=== PATIENT | female | born 1965 | race Caucasian/White ===

== ENCOUNTER 2024-08-08 21:42 | Emergency (ER) | payer BC ==
--- NOTE | 2024-08-08 22:39 | ED ---
Female Urogenital HPI - General Source: patient Mode of arrival: ambulatory Limitations: no limitations <Mukesh Taylor - Last Filed: 08/08/24 22:38> - General Source: patient, RN notes reviewed <Lindy Walton - Last Filed: 08/09/24 00:30> - General Chief complaint: Urogenital Stated complaint: UTI Time Seen by Provider: 08/08/24 22:38 - History of Present Illness Initial comments: Quick note: 59-year-old female presenting with chief complaint of "I have a UTI". She is having hematuria dysuria urgency and frequency. No flank pain, fever, nausea, vomiting. (Mukesh Taylor) 59-year-old female presenting with chief complaint of "I have a UTI". States since yesterday she has been experiencing dysuria, urinary frequency, and urinary urgency. Denies fevers, flank pain, nausea, or vomiting. States this feels similar to previous UTIs. (Lindy Walotn) - Related Data Previous Rx's Medication Instructions Recorded Cephalexin [Keflex] 500 mg PO Q12H 7 Days #14 cap 08/09/24 Allergies Allergy/AdvReac Type Severity Reaction Status Date / Time Penicillins AdvReac Rash/Hives Verified 08/08/24 21:56 Review of Systems ROS Other: All systems not noted in ROS Statement are negative. <Mukesh Taylor - Last Filed: 08/08/24 22:38> ROS Other: All systems not noted in ROS Statement are negative. <Lindy Walton - Last Filed: 08/09/24 00:30> ROS Statement: Those systems with pertinent positive or pertinent negative responses have been documented in the HPI. Past Medical History Past Medical History: Thyroid Disorder Past Surgical History: No Surgical Hx Reported Past Psychological History: No Psychological Hx Reported Smoking Status: Never smoker Past Alcohol Use History: None Reported Past Drug Use History: None Reported <Mukesh Taylor - Last Filed: 08/08/24 22:38> General Exam Limitations: no limitations <Mukesh Taylor - Last Filed: 08/08/24 22:38> General appearance: alert, in no apparent distress Head exam: Present: atraumatic, normocephalic, normal inspection Eye exam: Present: normal appearance, PERRL, EOMI. Absent: scleral icterus, conjunctival injection, periorbital swelling Respiratory exam: Present: normal lung sounds bilaterally. Absent: respiratory distress, wheezes, rales, rhonchi, stridor Cardiovascular Exam: Present: regular rate, normal rhythm, normal heart sounds. Absent: systolic murmur, diastolic murmur, rubs, gallop, clicks GI/Abdominal exam: Present: soft, normal bowel sounds. Absent: distended, tenderness, guarding, rebound, rigid Back exam: Absent: CVA tenderness (R), CVA tenderness (L) Neurological exam: Present: alert, oriented X3 Psychiatric exam: Present: normal affect, normal mood Skin exam: Present: warm, dry, intact, normal color. Absent: rash <Lindy Walton - Last Filed: 08/09/24 00:30> - General Exam Comments Initial Comments: Visual Physical Exam Vital signs reviewed General: Well-appearing, nontoxic, no acute distress. Head: Normocephalic, atraumatic Eyes: PERRLA, EOMI ENT: Airway patent Chest: Nonlabored breathing Skin: No visual rash, normal skin tone Neuro: Alert and oriented 3 Musculoskeletal: No gross abnormalities (Mukesh Taylor) Course Vital Signs 08/08/24 21:54 Temperature 98.0 F Pulse Rate 77 Respiratory 22 Rate Blood Pressure 131/67 O2 Sat by Pulse 97 Oximetry Medical Decision Making <Mukesh Taylor - Last Filed: 08/08/24 22:38> <Lindy Walton - Last Filed: 08/09/24 00:30> - Medical Decision Making I performed the quick note portion of this visit, electronically signed Mukesh Taylor PA-C (Mukesh Taylor) Was pt. sent in by a medical professional or institution (MANDEEP Shaffer, AUDIO VISUAL DESIGN ENGINEER, urgent care, hospital, or skilled nursing...) When possible be specific @ -No Did you speak to anyone other than the patient for history (EMS, parent, family, police, friend...)? What history was obtained from this source @ -No Did you review nursing and triage notes (agree or disagree)? Why? @ -I reviewed and agree with nursing and triage notes Were old charts reviewed (outside hosp., previous admission, EMS record, old EKG, old radiological studies, urgent care reports/EKG's, skilled nursing records)? Report findings @ -No old charts were reviewed Differential Diagnosis (chest pain, altered mental status, abdominal pain women, abdominal pain men, vaginal bleeding, weakness, fever, dyspnea, syncope, headache, dizziness, GI bleed, back pain, seizure, CVA, palpatations, mental health, musculoskeletal)? @ -Urinary tract infection, nephrolithiasis, pyelonephritis EKG interpreted by me (3pts min.). @ -None X-rays interpreted by me (1pt min.). @ -None done CT interpreted by me (1pt min.). @ -None done U/S interpreted by me (1pt. min.). @ -None done What testing was considered but not performed or refused? (CT, X-rays, U/S, labs)? Why? @ -None What meds were considered but not given or refused? Why? @ -None Did you discuss the management of the patient with other professionals (professionals i.e. , PA, AUDIO VISUAL DESIGN ENGINEER, lab, RT, psych nurse, community mental health social worker, clamp operator, teacher, examining officer, therapeutic case manager)? Give summary @ -No Was smoking cessation discussed for >3mins.? @ -No Was critical care preformed (if so, how long)? @ -No Were there social determinants of health that impacted care today? How? (Homelessness, low income, unemployed, alcoholism, drug addiction, singh sportation, low edu. Level, literacy, decrease access to med. care, retirement, rehab)? @ -No Was there de-escalation of care discussed even if they declined (Discuss DNR or withdrawal of care, Hospice)? DNR status @ -No What co-morbidities impacted this encounter? (DM, HTN, Smoking, COPD, CAD, Cancer, CVA, ARF, Chemo, Hep., AIDS, mental health diagnosis, sleep apnea, morbid obesity)? @ -None Was patient admitted / discharged? Hospital course, mention meds given and route, prescriptions, significant lab abnormalities, going to OR and other pertinent info. @ -Discharge. 59-year-old female presenting for dysuria x 1 day. Patient is afebrile with no CVA tenderness. Urinalysis remarkable for large white blood cells and red blood cells. Discussed diagnosis of urinary tract infection. Provided with a course of antibiotics and advised to follow-up with PCP in 1 week to ensure UTI has resolved. Appropriate return precautions discussed. Case was discussed with my ED attending Dr. Johnson. Undiagnosed new problem with uncertain prognosis? @ -No Drug Therapy requiring intensive monitoring for toxicity (Heparin, Nitro, Insulin, Cardizem)? @ -No Were any procedures done? @ -No Diagnosis/symptom? @ -Urinary tract infection Acute, or Chronic, or Acute on Chronic? @ -Acute Uncomplicated (without systemic symptoms) or Complicated (systemic symptoms)? @ -Uncomplicated Side effects of treatment? @ -No Exacerbation, Progression, or Severe Exacerbation? @ -No Poses a threat to life or bodily function? How? (Chest pain, USA, SC, pneumonia, PE, COPD, DKA, ARF, appy, cholecystitis, CVA, Diverticulitis, Homicidal, Suicidal, threat to staff... and all critical care pts) @ -No (Lindy Walton) - Lab Data Lab Results 08/08/24 Range/Units 22:04 Urine Color Colorless Urine Appearance Cloudy H (Clear) Urine pH 6.0 (5.0-8.0) Ur Specific [place] 1.017 (1.001-1.035) Urine Protein Trace H (Negative) Urine Glucose (UA) Negative (Negative) Urine Ketones Negative (Negative) Urine Blood Large H (Negative) Urine Nitrite Negative (Negative) Urine Bilirubin Negative (Negative) Urine Urobilinogen <2.0 (<2.0) mg/dL Ur Leukocyte Esterase Large H (Negative) Urine RBC >182 H (0-5) /hpf Urine WBC 165 H (0-5) /hpf Urine WBC Clumps Moderate H (None) /hpf Ur Squamous Epith Cells <1 (0-4) /hpf Urine Bacteria Few H (None) /hpf Disposition <Mukesh Taylor - Last Filed: 08/08/24 22:38> Is patient prescribed a controlled substance at d/c from ED?: No Time of Disposition: 00:27 <Lindy Walton - Last Filed: 08/09/24 00:30> Clinical Impression: Urinary tract infection Disposition: HOME SELF-CARE Condition: Stable Instructions (If sedation given, give patient instructions): Urinary Tract Infection in Women (ED) Additional Instructions: Take Keflex twice daily for 7 days. Follow-up with your PCP in 7 days to ensure that urinary tract infection has resolved. Please return to the Emergency Department if symptoms worsen or any other concerns. Prescriptions: Cephalexin [Keflex] 500 mg PO Q12H 7 Days #14 cap Referrals: Atul Dubose MD [Primary Care Provider] - 1-2 days
[2024-08-08 23:49] LABS: Bacteria,Urine Few /hpf; Bilirubin,Urine Negative (Negative); Blood,Urine Large (Negative); Color,Urine Colorless; Glucose,Urine (UA) Negative (Negative); Ketones,Urine Negative (Negative); Leukocyte Esterase,Urine Large (Negative); Nitrite,Urine Negative (Negative); PH, Urine 6.0 (5.0-8.0); Protein,Urine Trace (Negative); RBC,Urine >182 /hpf (0-5); Specific Gravity,Urine 1.017 (1.001-1.035); Squamous Epithelial Cell,Urine <1 /hpf (0-4); Urobilinogen,Urine <2.0 mg/dL (<2.0); WBC,Urine 165 /hpf (0-5)
[2024-08-09] MEDS: CEPHALEXIN 500MG STARTER PACK 4 CAP BTL PO STA (00:37)
[2024-08-09 00:44] VITALS: BP 131/77; PULSE 72; RESP 17; TEMP 98.2
== END 2024-08-09 01:02 | disposition home or self-care (01) ==
LOC: EC 21:42
DX: N39.0 Urinary tract infection, site not specified (principal); Z88.0 Allergy status to penicillin
CPT/HCPCS: 81001; 87086; 99283